=== PATIENT | female | born 1955 | race Caucasian/White ===

== ENCOUNTER → 2016-09-29 | Outpatient (CLI) | payer OTHER ==
[~2016-09-29] MED LIST: EMBREL; LEVO100T
[2016-09-29 11:18] LABS: BLOOD UREA NITROGEN 21 mg/dL (7-18)
== END | disposition home or self-care (01) ==
LOC: STAR 09:55
PROVIDERS: ATTEND Obstetrics & Gynecology Female Pelvic Medicine and Reconstructive Surgery
DX: Z01.818 Encounter for other preprocedural examination (principal); N85.01 Benign endometrial hyperplasia; N95.0 Postmenopausal bleeding
CPT/HCPCS: 36415; 71020; 80048; 85025; 93005

== ENCOUNTER 2016-11-01 06:03 | Day surgery (SDC) | payer OTHER ==
[~2016-11-01] VITALS: Ht 162.6 cm; Wt 63.5 kg
[~2016-11-01 06:03] MED LIST changes: +BIO PO; +C PROGESTERONE PO; +C TESTOSTERONE PO; +C-E2/E3 PO; +DHEA PO; +ESTRADIOL PO; +ESTRIOL PO; +ETAN50DI INJ; +MULT1TAB60 PO; +UBID50TA3 PO; +[UNRECOGNIZED DRUG - OTHER] PO; +[UNRECOGNIZED DRUG - OTHER] PO; +[UNRECOGNIZED DRUG - OTHER] PO; +[UNRECOGNIZED DRUG - OTHER] PO; +[UNRECOGNIZED DRUG - OTHER] PO
[2016-11-01 06:32] VITALS: BP 143/89
[2016-11-01] MEDS ORDERED: BUPIVACAINE/PF 0.25% ONE (06:47)
[2016-11-01] MEDS ORDERED: EPINEPHRINE 1 MG/ML, 1ML ONE (06:47)
[2016-11-01] MEDS ORDERED: FLUORESCEIN SODIUM 500 MG/5 ML ONE (06:47)
[2016-11-01] MEDS ORDERED: LACTATED RINGERS 1,000 ML IV SCH ×2 (06:52→09:07)
[2016-11-01] MEDS ORDERED: MIDAZOLAM 1 MG/ML, 2ML ONE (07:11)
[2016-11-01] MEDS ORDERED: FENTANYL PF 250 MCG/5ML ONE (07:11)
[2016-11-01] MEDS ORDERED: CEFAZOLIN 1,000 MG ONE (07:27)
[2016-11-01] MEDS ORDERED: KETOROLAC 30 MG/1 ML ONE (07:27)
[2016-11-01] MEDS ORDERED: ROCURONIUM 10 MG/ML ONE (07:27)
[2016-11-01] MEDS ORDERED: NEOSTIGMINE 1 MG/ML, 10ML ONE (07:27)
[2016-11-01] MEDS ORDERED: GLYCOPYRROLATE 0.2MG/1ML ONE (07:27)
[2016-11-01] MEDS ORDERED: DEXAMETHASONE 4 MG/ML, 1ML ONE (07:27)
[2016-11-01] MEDS ORDERED: ONDANSETRON 2MG/ML, 2ML ONE (07:27)
[2016-11-01] MEDS ORDERED: PROPOFOL 10 MG/ML, 20ML ONE (07:27)
[2016-11-01] MEDS ORDERED: LABETALOL 5MG/ML, 20ML IV PRN (08:30)
[2016-11-01] MEDS ORDERED: ONDANSETRON 2MG/ML, 2ML IVPush PRN ×2 (08:30→09:30)
[2016-11-01] MEDS ORDERED: PROMETHAZINE 25 MG/ML, 1ML IV PRN (08:30)
[2016-11-01] MEDS ORDERED: OXYcodone 5 MG/5 ML ORAL.SOL UDC PO PRN (08:30)
[2016-11-01] MEDS ORDERED: MEPERIDINE/PF 25MG/0.5ML IVPush PRN (08:30)
[2016-11-01] MEDS ORDERED: FENTANYL PF 100 MCG/2ML IV PRN (08:30)
[2016-11-01] MEDS ORDERED: MIDAZOLAM 1 MG/ML, 2ML IV PRN (08:30)
[2016-11-01] MEDS ORDERED: ALBUTEROL/IPRATROPIUM 2.5MG/0.5MG, 3 ML NPPB PRN (08:30)
[2016-11-01] MEDS ORDERED: ACETAMINOPHEN 325 MG TABLET PO PRN (08:30)
[2016-11-01] MEDS ORDERED: hydrALAzine 20 MG/ML, 1ML IV PRN (08:30)
[2016-11-01] MEDS ORDERED: HYDROmorphone 1 MG/ML, 1ML IV PRN (08:30)
[2016-11-01] MEDS ORDERED: MEPERIDINE/PF 25MG/0.5ML ONE (09:15)
[2016-11-01] MEDS ORDERED: ACETAMINOPHEN 325 MG/10.15 ML UDC ONE (09:15)
[2016-11-01] MEDS ORDERED: ACETAMINOPHEN 650 MG/20.3 ML UDC ONE (09:15)
[2016-11-01] MEDS ORDERED: OXYcodone 5 MG/5 ML ORAL.SOL UDC ONE (09:16)
[2016-11-01] MEDS ORDERED: HYDROcodone/APAP 5/325 TABLET PO PRN (09:30)
[2016-11-01] MEDS ORDERED: IBUPROFEN 600 MG TABLET PO PRN (09:30)
[2016-11-01] MEDS ORDERED: PROMETHAZINE 25 MG SUPP PR ONE (09:30)
== END 2016-11-01 12:00 ==
LOC: OUT 06:03
PROVIDERS: ATTEND Obstetrics & Gynecology Female Pelvic Medicine and Reconstructive Surgery
DX: N85.01 Benign endometrial hyperplasia (principal); N80.3 Endometriosis of pelvic peritoneum; N95.0 Postmenopausal bleeding; E03.9 Hypothyroidism, unspecified; L40.59 Other psoriatic arthropathy; Z98.890 Other specified postprocedural states; Z88.8 Allergy status to other drugs, medicaments and biological substances; Z91.018 Allergy to other foods; Z91.010 Allergy to peanuts; Z79.899 Other long term (current) drug therapy
CPT/HCPCS: 58571; 88307; J0171; J0690; J1100; J1885; J2175; J2250; J2405; J2704; J2710; J3010; J3490; J7120; S2900